=== PATIENT | female | born 1990 | race Caucasian/White ===

== ENCOUNTER 2017-08-17 15:32 | Inpatient (IN) | payer OTHER ==
[2017-08-17 18:16] LABS: ADD UMIC YES; UR ASCORBIC ACID NEGATIVE (NEGATIVE); UR BILIRUBIN (Dip) NEGATIVE (NEGATIVE); UR BLOOD (Dip) NEGATIVE (NEGATIVE); UR CALCIUM OXALATE CRYSTAL MANY /HPF (NONE SEEN); UR CLARITY CLOUDY (CLEAR); UR COLOR AMBER (YELLOW); UR GLUCOSE (Dip) NEGATIVE (NEGATIVE); UR KETONES (Dip) 1+ mg/dL (NEGATIVE); UR LEUKOCYTE ESTERASE (Dip) 2+ Leu/ul (NEGATIVE); UR MUCUS MANY /HPF (NONE SEEN); UR NITRITE (Dip) NEGATIVE (NEGATIVE); UR RBC 0 /HPF (0-5); UR SPECIFIC GRAVITY (Dip) 1.029 (1.003-1.030); UR SQUAMOUS EPITHELIAL CELL MODERATE /HPF (FEW); UR TOTAL PROTEIN (Dip) 1+ mg/dl (NEGATIVE); UR UROBILINOGEN (Dip) 2+ mg/dL (NEGATIVE); UR WBC 9 /HPF (0-5)
[2017-08-17 18:38] LABS: ADD MAN DIFF? NO
[2017-08-17 18:40] LABS: AMPHETAMINE/METHAMPHETAMINE Negative (NEGATIVE); BARBITURATES Negative (NEGATIVE); BENZODIAZEPINES Negative (NEGATIVE); CANNABINOIDS Negative (NEGATIVE); COCAINE Negative (NEGATIVE); OPIATES Negative (NEGATIVE)
[2017-08-17 18:42] LABS: BASOPHILS % 0.2 % (0.0-2.0); EOSINOPHILS # 0.1 10^3/ul (0.0-0.5); EOSINOPHILS % 1.7 % (0.0-7.0); HEMATOCRIT 29.2 % (37.0-47.0); HEMOGLOBIN 9.5 g/dl (12.0-16.0); LYMPHOCYTES # 1.1 10^3/ul (0.8-2.9); LYMPHOCYTES % 19.1 % (15.0-51.0); MEAN CORPUSCULAR HEMOGLOBIN 26.5 pg (29.0-33.0); MEAN CORPUSCULAR HGB CONC 32.5 g/dl (32.0-37.0); MEAN CORPUSCULAR VOLUME 81.3 fl (82.0-101.0); MEAN PLATELET VOLUME 11.5 fl (7.4-10.4); MONOCYTE # 0.7 10^3/ul (0.3-0.9); MONOCYTES % 12.3 % (0.0-11.0); NEUTROPHIL # 3.9 10^3/ul (1.6-7.5); NEUTROPHILS % 66.4 % (39.0-77.0); PLATELET COUNT 167 10^3/UL (140-415); RED BLOOD COUNT 3.59 10^6/ul (4.20-5.40); RED CELL DISTRIBUTION WIDTH 13.1 % (11.5-14.5)
[2017-08-17 18:42] LABS: WHITE BLOOD COUNT 5.9 10^3/ul (4.8-10.8)
[2017-08-17 18:56] LABS: PROTIME 12.2 Sec (11.9-14.9)
[2017-08-17 18:57] LABS: PARTIAL THROMBOPLASTIN TIME 31.3 Sec (25.0-35.0)
[2017-08-17 19:04] LABS: ALANINE AMINOTRANSFERASE 26 IU/L (13-69); ALBUMIN 3.2 g/dl (3.3-4.9); ALBUMIN/GLOBULIN RATIO 0.96; ALKALINE PHOSPHATASE 291 IU/L (42-121); ANION GAP 12 (8-16); ASPARTATE AMINO TRANSFERASE 13 IU/L (15-46); BILIRUBIN,INDIRECT 0.1 mg/dl (0-1.1); BILIRUBIN,TOTAL 0.1 mg/dl (0.2-1.3); BLOOD UREA NITROGEN 6 mg/dl (7-20); CALCIUM 8.9 mg/dl (8.4-10.2); CARBON DIOXIDE 21 mmol/L (21-31); CHLORIDE 107 mmol/L (97-110); CREATININE 0.65 mg/dl (0.44-1.00); GLUCOSE 90 mg/dl (70-220); POTASSIUM 3.7 mmol/L (3.5-5.1); SODIUM 136 mmol/L (135-144); TOTAL PROTEIN 6.5 g/dl (6.1-8.1); URIC ACID 4.4 mg/dl (3.1-7.9)
[2017-08-17 21:07] LABS: FIBRIN SPLIT PRODUCT <10 ug/ml (<10)
[2017-08-17] MEDS ORDERED: GUAIFENESIN 20 MG/ML 5ML CUP PO (22:30)
[2017-08-17] MEDS ORDERED: AL HYDROX/MG HYDROX/SIMETH 30 ML CUP PO (22:30)
[2017-08-17] MEDS ORDERED: ONDANSETRON 4 MG INJ IV (22:30)
[2017-08-17] MEDS: LACTATED RINGER'S 1,000 ML IV ×2 (22:33→23:57)
[2017-08-17] MEDS: ACETAMINOPHEN 1000MG/100ML IV 100 ML IVPB (23:13)
[2017-08-17] MEDS: CEFAZOLIN 2 GM/50 ML (PMX) 50 ML IVPB (23:56)
[2017-08-18] MEDS: CEPHALEXIN 500 MG CAP PO ×3 (07:01→17:49)
[2017-08-18] MEDS: MAGNESIUM OXIDE 400 MG TAB PO ×2 (09:13→21:14)
[2017-08-18] MEDS: LACTATED RINGER'S 1,000 ML IV ×2 (09:14→18:12)
[2017-08-18] MEDS: DOCUSATE SODIUM 100 MG CAP PO (09:14)
[2017-08-18] MEDS: PRENATAL VITAMIN PO (09:14)
[2017-08-18] MEDS: FERROUS SULFATE (EC) 325 MG TAB PO (09:14)
[2017-08-18] MEDS: MAGNESIUM SULFATE 2 GM/50 ML 50 ML IVPB (12:53)
[2017-08-19] MEDS: CEPHALEXIN 500 MG CAP PO ×3 (00:13→12:08)
[2017-08-19] MEDS: LACTATED RINGER'S 1,000 ML IV ×2 (00:14→08:05)
[2017-08-19] MEDS: FERROUS SULFATE (EC) 325 MG TAB PO (09:14)
[2017-08-19] MEDS: MAGNESIUM OXIDE 400 MG TAB PO (09:14)
[2017-08-19] MEDS: DOCUSATE SODIUM 100 MG CAP PO (09:14)
[2017-08-19] MEDS: PRENATAL VITAMIN PO (09:14)
[2017-08-19] MEDS: MAGNESIUM SULFATE 2 GM/50 ML 50 ML IVPB (12:56)
[2017-08-19] MEDS: SOD CHLORIDE 0.9% 1,000 ML IV (17:22)
== END 2017-08-19 19:20 | disposition home or self-care (01) | DRG 781 ==
LOC: OBT 15:32 → L-D 15:34 → OBT 21:24 → L-D 21:10
DX: O26.893 Other specified pregnancy related conditions, third trimester (principal); G43.909 Migraine, unspecified, not intractable, without status migrainosus; Z3A.36 36 weeks gestation of pregnancy
CPT/HCPCS: 70544; 70551; 76815; 76818; 80053; 80307; 81001; 84560; 85025; 85362; 85384; 85610; 85730